=== PATIENT | female | born 1995 | race American Indian/Alaskan Native ===

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

== ENCOUNTER 2017-04-01 18:59 | Inpatient (IN) | payer MEDICAID ==
[2017-04-01] MEDS ORDERED: LACTATED RINGERS 1,000 ML ONE ×2 (20:12)
[2017-04-01] MEDS: LACTATED RINGERS 1,000 ML IV SCH ×3 (20:15→22:13)
[2017-04-01] MEDS ORDERED: ePHEDrine SULFATE ONE (21:20)
[2017-04-01] MEDS ORDERED: BRETHINE SUB-Q PRN (21:38)
[2017-04-01] MEDS ORDERED: ePHEDrine SULFATE IV PRN (21:38)
[2017-04-01] MEDS ORDERED: XYLOCAINE 2% INFILTRATI ONE (21:38)
[2017-04-01] MEDS ORDERED: PITOCin/NS 20 UNIT/1000ML DRIP 20 UNITS/1,000 ML BAG IV SCH (22:00)
[2017-04-01 22:04] LABS: Hematocrit 37.8 % (30.3-42.9); Hemoglobin 12.3 gm/dl (10.1-14.3); Mean Corpuscular HGB Conc 33 % (30-34); Mean Corpuscular Hemoglobin 31 pg (28-32); Mean Corpuscular Volume 94 fl (79-97); Platelet Count 257 K/mm3 (140-440); Red Blood Count 4.01 M/mm3 (3.65-5.03); Red Cell Distribution Width 14.2 % (13.2-15.2); White Blood Count 9.7 K/mm3 (4.5-11.0)
[2017-04-01] MEDS ORDERED: NARCAN 2 MG/2 ML IV PRN (23:26)
--- NOTE | 2017-04-01 23:26 | Anesthesia Consultation ---
Anesthesia Consult and Med Hx Date of service: 04/01/17 - Airway Anesthetic Teeth Evaluation: Good ROM Head & Neck: Adequate Mental/Hyoid Distance: Adequate Intubation Access Assessment: Probably Good - Pulmonary Exam CTA: Yes - Cardiac Exam Cardiac Exam: RRR - Pre-Operative Health Status ASA Pre-Surgery Classification: ASA3, Emergency Proposed Anesthetic Plan: Epidural, Spinal - Pulmonary Hx Asthma: Yes (Last attack 8yrs ago) - Cardiovascular System Hx Hypertension: No - Central Nervous System Hx Seizures: No Hx Psychiatric Problems: No - Endocrine Hx Renal Disease: No Hx Hypothyroidism: No Hx Hyperthyroidism: No - Hematic Hx Anemia: No Hx Sickle Cell Disease: No - Other Systems Hx Alcohol Use: No
[2017-04-01] MEDS ORDERED: fentaNYL-BUPIV 2 MCG/ML-0.125% 200 MCG/100 ML BAG EPIDURAL SCH (23:45)
--- NOTE | 2017-04-02 | History and Physical Report ---
History of Present Illness Date of examination: 04/01/17 Date of admission: 04/01/17 20:12 Chief complaint: Patient complains of contractions History of present illness: 21 year old at 38 weeks 4 days gestation complains of contractions since this morning. She denies leaking of fluid or vaginal bleeding. She reports active movement. Past History Past Medical History: asthma, other (had UTI during which was treated with Macrobid) Past Surgical History: no surgical history [employer] History: denies: herpes Family/Genetic History: hypertension, cancer Social history: single, lives with family, full code. denies: smoking, alcohol abuse, prescription drug abuse, IV drug use - Obstetrical History Expected Date of Delivery: 04/11/17 Actual Gestation: 38 Week(s) 4 Day(s) : 1 Para: 0 Hx # Term Pregnancies: 1 Number of Pregnancies: 0 Spontaneous Abortions: 0 Induced : 0 Number of Living Children: 0 Medications and Allergies Allergies Allergy/AdvReac Type Severity Reaction Status Date / Time No Known Allergies Allergy Verified 04/01/17 20:16 Home Medications Medication Instructions Recorded Confirmed Last Taken Type ALBUTEROL Inhaler [ProAir HFA 2 puff IH QID PRN #1 inhalation 11/15/16 Unknown Rx Inhaler] Fluticasone [Flonase] 1 spray NS QDAY #1 bottle 11/15/16 Unknown Rx Active Meds: Active Medications Ephedrine Sulfate (Ephedrine Sulfate) 10 mg IV Q2M PRN PRN Reason: Hypotension Lactated Ringer's (Lactated Ringers) 1,000 mls @ 125 mls/hr IV DIRECT ANNE Last Admin: 04/01/17 22:13 Dose: 125 mls/hr Oxytocin/Sodium Chloride (Pitocin/Ns 20 Unit/1000ml Drip) 20 units in 1,000 mls @ 125 mls/hr IV DIRECT ANNE Fentanyl/Bupivacaine/Sodium Chlor (Fentanyl-Bupiv 2 Mcg/Ml-0.125%) 200 mcg in 100 mls @ 12 mls/hr EPIDURAL TITR ANNE PRN Reason: Protocol Naloxone HCl (Narcan 2 Mg/2 Ml) 0.2 mg IV Q5M PRN PRN Reason: Respiratory sedation Terbutaline Sulfate (Brethine) 0.25 mg SUB-Q ONCE PRN PRN Reason: Hyperstimulation/Hypertonicity Review of Systems All systems: negative (contractions) - Vital Signs Vital signs: Vital Signs Pulse Pulse Ox 94 H 98 04/01/17 19:19 04/01/17 19:19 Temp Pulse Resp BP Pulse Ox 98.6 F 73 13 130/77 100 04/01/17 20:21 04/01/17 23:57 04/01/17 20:21 04/01/17 23:31 04/01/17 23:57 - Physical Exam Cardiovascular: Regular rate, Normal S1, Normal S2 Lungs: Positive: Clear to auscultation Abdomen: Positive: normal appearance, soft. Negative: distention, tenderness, guarding, rigidity Genitourinary (Female): Positive: normal external genitalia (no lesions seen on careful exam with bright light upon admission), normal perenium. Negative: perineal/vulvar lesions Vagina: Positive: normal moisture Uterus: Positive: enlarged. Negative: tender Anus/Rectum: Positive: normal perianal skin Extremities: Positive: normal. Negative: tenderness, edema - Obstetrical FHR: category 1 Uterine Contraction Monitor Mode: External Cervical Dilatation: 6 Cervical Effacement Percentage: 95 station: 0 Uterine Contraction Pattern: Regular Uterine Contraction Intensity: Moderate Results Result Diagrams: 04/01/17 20:50 All other labs normal. Assessment and Plan A: at 38 weeks, 4 days gestation. Active labor. GBS negative. P: Admit. Anticipate .
--- NOTE | 2017-04-02 02:57 | Event Note ---
Date: 04/02/17 Put in Pitocin orders for augmentation of labor. SVE unchanged. Patient has epidural. Reassuring heart rate tracing. Discussed with patient risks and benefits of Pitocin augmentation of labor. Patient consented to Pitocin augmentation of labor.
[2017-04-02] MEDS ORDERED: PITOCin/NS 30 UNIT/500ML 30 UNITS/500 ML BAG IV SCH (03:00)
[2017-04-02] MEDS ORDERED: ZOFRAN IV PRN (04:50)
--- NOTE | 2017-04-02 04:58 | Event Note ---
Date: 04/02/17 AROM at 04:46 to augment labor. Patient is also receiving Pitocin at 4 milliunits per minute. Patient is comfortable after receiving epidural. Category 1 heart rate tracing. SVE 7/95/0. Clear fluid.
[2017-04-02] MEDS: LACTATED RINGERS 1,000 ML IV SCH (05:51)
[2017-04-02] MEDS ORDERED: NORCO 5/325 PO PRN (08:24)
[2017-04-02] MEDS ORDERED: TUCKS PAD TP PRN (08:24)
--- NOTE | 2017-04-02 08:37 | Procedure Note ---
OB Delivery Note - Delivery Date of Delivery: 04/02/17 Surgeon: RUTH LIVE Estimated blood loss: 300cc - Vaginal Delivery presentation: vertex Delivery position: OA Intrapartum events: none Delivery induction: none Delivery augmentation: rupture of membranes, pitocin Delivery monitor: external FHT, external uterine Route of delivery: Delivery placenta: spontaneous Delivery cord: 3 umbilical vessels Episiotomy: none Delivery laceration: 2nd degree Delivery repair: vicryl Anesthesia: epidural Delivery comments: Spontaneous vaginal delivery of liveborn male infant weighing 7 lb. 9 oz. over 2nd degree perineal laceration with apgars of 9/9. Epidural anesthesia. head, shoulders, and body delivered easily. Baby placed immediately on maternal chest after . Spontaneous cry and respirations. Baby bulb suctioned. Short cord. 3 vessel cord double clamped and cut after cessation of pulsation. Spontaneous delivery of intact placenta and membranes by watters mechanism. EBL 300 ml. Pitocin to IV fluids after delivery of placenta. Fundus firm and midline. 2nd degree midline perineal laceration repaired in usual sterile fashion with 2-0 and 3-0 vicryl. Vaginal sweep negative. Sponge count correct. Mother and baby stable in birthing room.
[2017-04-02] MEDS ORDERED: SODIUM CHLORIDE FLUSH SYRINGE 10 ML IV NR (09:00)
[2017-04-02] MEDS: MOTRIN PO SCH (16:28)
[2017-04-02] MEDS ORDERED: MILK OF MAGNESIA PO PRN (22:00)
[2017-04-03] MEDS: COLACE PO SCH ×2 (00:35→09:36)
[2017-04-03] MEDS: MOTRIN PO SCH ×3 (05:11→11:20)
[2017-04-03 05:41] LABS: Hematocrit 28.3 % (30.3-42.9); Hemoglobin 9.5 gm/dl (10.1-14.3)
--- NOTE | 2017-04-03 09:36 | Progress Note ---
Assessment and Plan A: PPD 1 - stable Anemia - asymptomatic P: Discharge patient to home Follow up in 6 weeks for check Subjective - Subjective Date of service: 04/03/17 Principal diagnosis: Normal Spontaneous Vaginal Delivery Patient reports: appetite normal, voiding normally, pain well controlled, ambulating normally [place]: doing well, nursing well, bottle feeding Objective - Vital Signs Latest vital signs: Vital Signs Temp Pulse Resp BP BP Pulse Ox 04/03/17 00:35 97.8 F 69 18 120/69 100 04/02/17 17:32 98.2 F 79 117/76 04/02/17 16:30 20 04/02/17 16:28 20 04/02/17 10:30 98.4 F 87 107/53 04/02/17 09:40 70 18 114/56 114/56 98 04/02/17 09:35 94 H 98 Intake and Output 04/02/17 04/03/17 04/03/17 23:59 07:59 15:59 Intake Total 240 240 Balance 240 240 Intake: Oral 240 240 Other: Total, Intake Amount 240 240 # Voids Indwelling Catheter 1 Void 1 - Exam Breasts: Present: deferred Cardiovascular: Present: Regular rate, Normal S1, Normal S2 Lungs: Present: Clear to auscultation, Normal air movement Abdomen: Present: normal appearance, soft Vulva: both: laceration/episiotomy (2nd degree tsering, well-approximated) Uterus: Present: normal, firm, fundal height below umbilicus Extremities: Present: normal Deep Tendon Reflex Grade: Normal +2 - Labs Labs: Abnormal lab results 04/03/17 Range/Units 05:24 Hgb 9.5 L (10.1-14.3) gm/dl Hct 28.3 L D (30.3-42.9) %
--- NOTE | 2017-04-03 09:37 | Discharge Summary ---
Providers - Providers Date of Admission: 04/01/17 20:12 Date of discharge: 04/03/17 Attending physician: JONATHAN TREVIÑO MD Primary care physician: JONATHAN TREVIÑO MD Hospitalization Reason for admission: active labor, IUP at term Delivery: Episiotomy: none Laceration: 2nd degree (perineal) Other procedures: none complications: none Discharge diagnosis: IUP at term delivered [place] baby: male Hospital course: Uncomplicated Condition at discharge: Stable Disposition: DC-01 TO HOME OR SELFCARE Plan - Discharge Medications Prescriptions: Ibuprofen [Motrin 600 MG tab] 600 mg PO Q6H #30 tablet - Provider Discharge Summary Activity: routine, no sex for 6 weeks, no heavy lifting 4 weeks, no strenuous exercise Diet: routine Instructions: routine Additional instructions: [] Smoking cessation referral if applicable(refer to patient education folder for contact #) [] Refer to [facility] Booklet Call your doctor immediately for: * Fever > 100.5 * Heavy vaginal bleeding ( >1 pad per hour) * Severe persistent headache * Shortness of breath * Reddened, hot, painful area to leg or breast * Drainage or odor from incision. * Keep incision clean and dry at all times and follow doctor's instructions regarding bathing/showering - Follow up plan Follow up: JONATHAN TREVIÑO MD [Primary Care Provider] - 6 Weeks (Follow up in 6 weeks for exam)
[2017-04-03 15:27] VITALS: BP 112/51
== END 2017-04-03 15:45 | disposition home or self-care (01) | DRG 775 ==
LOC: TRG 18:59 → LD 18:59 → TRG 20:11 → OBSVTOIN 20:12 → LD 20:12 → OB 04-02 10:35
PROVIDERS: ADMIT Obstetrics & Gynecology; ATTEND Obstetrics & Gynecology
PROC: 10E0XZZ Delivery of Products of Conception, External Approach (ICD-10-PCS; principal; 2017-04-02)
PROC: 0KQM0ZZ Repair Perineum Muscle, Open Approach (ICD-10-PCS; 2017-04-02)
PROC: 3E0R3BZ Introduction of Anesthetic Agent into Spinal Canal, Percutaneous Approach (ICD-10-PCS; 2017-04-02)
PROC: 00HU33Z Insertion of Infusion Device into Spinal Canal, Percutaneous Approach (ICD-10-PCS; 2017-04-02)
DX: O99.52 Diseases of the respiratory system complicating childbirth (principal); Z3A.38 38 weeks gestation of pregnancy; Z37.0 Single live birth; O70.1 Second degree perineal laceration during delivery; O90.81 Anemia of the puerperium; D64.9 Anemia, unspecified; J45.909 Unspecified asthma, uncomplicated
CPT/HCPCS: 36415; 85014; 85018; 85027; 86850; 86900; 86901; 99211; G0463; J2405; J2590; J7120